=== PATIENT | female | born 1975 | race African-American/Black ===

== ENCOUNTER 2020-12-18 10:27 | Outpatient (REF) | payer MEDICAID, SELFPAY ==
--- NOTE | ~2020-12-18 | MM_ITS ---
EXAMINATION: MM SCREENING DIGITAL BREAST TOMOSYNTHESIS, BILATERAL CLINICAL INFORMATION: Screening. Asymptomatic. The lifetime risk of breast cancer based on the Tyrer-Cuzick Model is 8.2%. COMPARISON: Mammography: Ultrasound of October 12, 2019 and mammography dating back to April 13, 2013 TECHNIQUE: Digital breast tomosynthesis is performed in both the craniocaudal and mediolateral oblique views along with computer-aided detection (CAD). Synthesized 2D images are generated from the tomosynthesis. FINDINGS: The breasts are extremely dense, which lowers the sensitivity of mammography (ACR BI-RADS breast composition Category d). There are no new significant masses, abnormal calcifications, or other abnormalities. Bilateral stable circumscribed densities consistent with cysts again noted. MM/MM tomosynthesis screening BI IMPRESSION: There are no significant changes from prior study. ASSESSMENT: BI-RADS 2: Benign RECOMMENDATION: Routine annual mammography screening. This patient's information was entered into a reminder system with a target due date for their next mammogram.
== END 2020-12-18 10:28 | disposition home or self-care (01) ==
LOC: HO.MAMMO 10:27
PROVIDERS: PCP Internal Medicine; Visit Provider Obstetrics & Gynecology
DX: Z12.31 Encounter for screening mammogram for malignant neoplasm of breast (principal)
CPT/HCPCS: 77063; 77067

== ENCOUNTER → 2021-05-11 11:10 | Outpatient (BNVA) | payer MEDICAID, SELFPAY | PROVIDERS: PCP Internal Medicine; Visit Provider Obstetrics & Gynecology | DX: N64.4 Mastodynia (principal); N63.0 Unspecified lump in unspecified breast | CPT/HCPCS: 99212 ==

== ENCOUNTER 2021-05-18 09:21 | Outpatient (REF) | payer MEDICAID, SELFPAY ==
--- NOTE | ~2021-05-18 | MM_ITS ---
EXAMINATION: MM DIAGNOSTIC DIGITAL BREAST TOMOSYNTHESIS, RIGHT US DIAGNOSTIC ULTRASOUND BREAST, RIGHT CLINICAL INFORMATION: 45-year-old with palpable mass anterior 12:00 right breast. Tenderness right breast. No discharge. The lifetime risk of breast cancer based on the Tyrer-Cuzick Model is 10%. COMPARISON: Mammography: 12/18/2020, 10/04/2019, 02/23/2018; targeted right breast ultrasound 10/12/2019. TECHNIQUE: Digital breast tomosynthesis is performed in both the craniocaudal and mediolateral oblique views along with computer-aided detection (CAD). Synthesized 2D images are generated from the tomosynthesis. Ultrasound right breast is targeted to the area of clinical concern anterior superior breast. Patient is able to point to area of concern at time of imaging. Grayscale imaging and color Doppler are performed without and with harmonics. FINDINGS: The breasts are extremely dense, which lowers the sensitivity of mammography (ACR BI-RADS breast composition Category d). There is fibrocystic parenchymal pattern with multiple parenchymal contour anterior 12:00 right breast similar to prior studies. There is no interval mass or architectural abnormality. No abnormal calcifications. The skin contours are smooth. No skin thickening or coarsening of the Larry's ligaments. Ultrasound right breast demonstrates dominant simple cyst at site of palpable concern 12:00 position anterior breast with overall measurements 2.5 x 1.3 x 2.2 cm. This is slightly increased in size from prior ultrasound 10/12/2019, measurements 2.0 x 1.2 x 1.8 cm. There are some other scattered smaller cysts under 1 cm in the targeted area. No solid mass. No skin thickening or edema tracking in soft tissue planes. No focal duct ectasia. No hyperemia. Results are discussed with the patient at time of visit. MM/MM tomosynthesis diagnostic RT IMPRESSION: Fibrocystic parenchymal pattern. Dominant simple cyst at site of palpable concern measuring 2.5 cm. ASSESSMENT: BI-RADS 2: Benign RECOMMENDATION: Routine annual mammography screening. This patient's information was entered into a reminder system with a target due date for their next mammogram.
== END 2021-05-18 09:22 | disposition home or self-care (01) ==
LOC: HO.MAMMO 09:21
PROVIDERS: PCP Internal Medicine; Visit Provider Advanced Practice Midwife
DX: N64.4 Mastodynia (principal)
CPT/HCPCS: 76642; 77061; 77065

== ENCOUNTER → 2021-05-27 15:45 | Outpatient (BNVA) | payer MEDICAID, SELFPAY | PROVIDERS: PCP Internal Medicine; Visit Provider Advanced Practice Midwife ==

== ENCOUNTER 2023-02-09 08:27 | Outpatient (REF) | payer OTHER, SELFPAY ==
--- NOTE | ~2023-02-09 | MM_ITS ---
EXAMINATION: MM SCREENING DIGITAL BREAST TOMOSYNTHESIS, BILATERAL CLINICAL INFORMATION: Screening. Asymptomatic. The lifetime risk of breast cancer based on the Tyrer-Cuzick Model is 8%. COMPARISON: Mammography: 05/18/2021, 12/18/2020, 10/04/2019; ultrasound right breast 05/18/2021, 10/12/2019. TECHNIQUE: Digital breast tomosynthesis is performed in both the craniocaudal and mediolateral oblique views along with computer-aided detection (CAD). Synthesized 2D images are generated from the tomosynthesis. FINDINGS: The breasts are heterogeneously dense, which may obscure small masses (ACR BI-RADS breast composition Category c). Breast tissue composition borders on extremely dense. Parenchymal pattern is similar to prior studies. Tomography shows scattered smooth waxing and waning fibrocystic changes similar to prior exam. There is a biopsy clip marker anterior upper outer left breast. Neither breast shows developing density or significant mass or architectural abnormality. There are no abnormal calcifications. MM/MM tomosynthesis screening BI IMPRESSION: No significant changes from prior study. ASSESSMENT: BI-RADS 2: Benign RECOMMENDATION: Routine annual mammography screening. This patient's information was entered into a reminder system with a target due date for their next mammogram.
== END 2023-02-09 08:28 | disposition home or self-care (01) ==
LOC: HO.MAMMO 08:27
PROVIDERS: PCP Internal Medicine; Visit Provider Internal Medicine
DX: Z12.31 Encounter for screening mammogram for malignant neoplasm of breast (principal)
CPT/HCPCS: 77063; 77067

== ENCOUNTER 2023-09-21 08:43 | Outpatient (AMB) | payer OTHER, SELFPAY ==
--- NOTE | 2023-09-21 08:53 | A.OFFPC_ITS ---
Vital Signs 09/21/23 08:54 Height 5 ft 6 in Weight 74.389 kg BMI 26.5 BP 140/86 H Blood Pressure Location Lt brachial Position Sitting Pulse 85 Pulse Source Pulse Oximeter Pulse Oximetry (%) 97 Oxygen Delivery Method Room Air Intake Visit Reasons: Re establish Care/ Req physical Sushi Chef Required: No Accompanied by: Self / Same As Patient Allergies No Known Allergies Allergy (Verified 09/21/23 09:04) Medication List - Last Reconciled 09/21/23 by Yonathan Sheridan MD blood pressure monitor (Blood Pressure Kit) As directed Tobacco use date assessed: 09/21/23 Dental Screening Dental Screen Date: 09/21/23 Did you have a dental visit in the last 12 months?: Yes Did you have a dental problem in the last 6 months where you did not have access to dental care?: No Was dental information given to patient?: Patient has dentist HPI Re establish Care/ Req physical HPI Details 47-year-old female with a history of ane josefina and hypercholesterolemia last seen in 2017 coming in for follow-up. states lying flat sob- sicne covid December 2021. 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 1. Little interest or pleasure in doing things: not at all 2. Feeling down, depressed, or hopeless: not at all 3. Trouble falling or staying asleep, or sleeping too much: not at all 4. Feeling tired or having little energy: not at all 5. Poor appetite or overeating: not at all 6. Feeling bad about yourself - or that you are a failure or have let yourself or your family down: not at all 7. Trouble concentrating on things, such as reading the newspaper or watching television: not at all 8. Moving or speaking so slowly that other people could have noticed. Or the opposite - being so fidgety or restless that you have been moving around a lot more than usual: not at all 9. Thoughts that you would be better off or of hurting yourself in some way: not at all Total score: 0 Depression Screening Interpretation: Positive Depression Screening Done: Yes 08163 - PHQ-9 Billing: Yes Source: Developed by Drs. Antony Leonard, Tiny Grimaldo, Bj Vallecillo and colleagues, with an educational shonna from [employer]. Thrive Questionnaire Date Thrive assessed: 09/21/23 I am a: Patient What is your living situation today?: I have a steady place to live Within the past 12 months, did the food you bought not last and you didn't have the money to get more?: Never true Within the past 12 months, did you worry whether your food would run out before you got money to buy more?: Never true Do you have trouble paying for medicines?: No Do you have trouble getting transportation to medical appointments?: No Do you have trouble paying your heating and electricity bill?: No Do you have trouble taking care of your child, family member or friend?: No Do you have trouble with day-to-day activities such as bathing, preparing meals, shopping, managing finances, etc.?: No Are you currently unemployed and looking for a job?: No Are you interested in more education?: No Please select the resources that you would like help with: None Currently or been in a relationship where the following occur: no concerns reported AUDIT C Alcohol Use Questionnaire (AUDIT-C) 1. How often do you have a drink containing alcohol?: Never 3. How often do you have six or more drinks on one occasion?: Never Total Score: 0 JACEK-7 AMB Questionnaire JACEK-7 Date JACEK - 7 assessed: 09/21/23 Feeling nervous, anxious, or on edge: 0 = Not at all Not being able to stop or control worryin = Not at all Worrying too much about different things: 0 = Not at all Trouble relaxin = Not at all Being so restless that it is hard to sit still: 0 = Not at all Becoming easily annoyed or irritable: 0 = Not at all Feeling afraid as if something awful might happen: 0 = Not at all Total JACEK-7 score (0-4 normal; 5-9 mild; 10-14 moderate; 15-21 severe): 0 Source: Developed by Drs. Antony Leonard, Tiny Grimaldo, Bj Vallecillo and colleagues, with an educational shonna from [employer]. JACEK-7 Assessment Billing JACEK-7 Assessment Tool: JACEK-7 Assessment 21841 Review of Systems Const Denies poor appetite and Denies weakness Eyes Denies no additional complaints ENT Reports Normal hearing present, Denies dizziness, Denies nasal congestion, Denies tinnitus and Denies sore throat Card Denies chest pain, Denies syncope, Denies rapid heart rate and Denies dyspnea Resp Denies cough and Denies dyspnea GI Denies change in stool character, Reports constipation, Denies diarrhea, Denies nausea and Denies vomiting Denies urinary frequency, Denies difficulty voiding and Denies dysuria Neuro Reports Normal hearing present, Denies confusion, Denies dizziness, Denies syncope and Denies weakness Psych Denies confusion Physical exam (Primary Care) Vital Signs: Last Vital Signs Pulse 85 09/21/23 08:54 BP 140/86 H 09/21/23 08:54 Pulse Ox 97 09/21/23 08:54 Oxygen Delivery Method Room Air 09/21/23 08:54 BMI result Body Mass Index 26.5 Tobacco/Smoking Status: Tobacco use Status Tobacco use date assessed 09/21/23 09/21/23 08:54 Patient Tobacco Use Status Never used Tobacco 09/21/23 08:54 e-Cigarette/Vaping Use Never Used 09/21/23 09:09 PHQ-9: PHQ-9 Score PHQ-9: Total score 0 09/21/23 09:31 Depression Screening Interpretation: Positive Thrive Assessment: Date of Thrive Assessment Date Thrive assessed 09/21/23 09/21/23 09:09 Currently or been in a relationship where the following occur: no concerns reported Const General: No confusion Orientation/consciousness: No confusion HENMT Head: Yes normocephalic Ears: external ears normal and TM's normal bilaterally Face and sinus: Yes normal facial exam Mouth: moist mucous membranes Throat: Yes tonsils normal Eyes Conjunctivae: conjunctivae normal Pupils: Equal, round and reactive pupils present and Pupil accommodation reflex normal Direct Ophthalmoscopy: normal light reflex Neck Neck: No lymphadenopathy Thyroid: Thyroid normal Chest Chest palpation & inspection: normal inspection of the chest Resp Effort & Inspection: normal respiratory effort and no audible wheezes Auscultation: clear to auscultation bilaterally, no crackles, no wheezes and lung sounds not diminished Cardio Rate: regular rate Rhythm: regular rhythm Peripheral pulses: radial pulses present and dorsalis pedis present GI Palpation (GI): no masses Auscultation: normal bowel sounds and normoactive bowel sounds Rectal Exam - Female: deferred Skin General skin exam: no rashes or lesions noted Rashes: no rashes Neuro General: No confusion Cranial nerves: Yes Equal, round and reactive pupils present and Yes Normal hearing present Cognition (Neuro): normal cognition Gait exam (Neuro): Normal gait present Motor exam (neuro): 5/5 motor strength present throughout Deep tendon reflexes (DTR's): Right brachioradialis reflex intensity grade: 2+, Left brachioradialis reflex intensity grade: 2+, Right patellar reflex intensity grade: 2+ and Left patellar reflex intensity grade: 2+ Extrem General: No edema Immunizations tetanus-diphtheria toxoids-Td 2 Lf unit-2 Lf unit/0.5 mL IM suspension Performing Provider: Yonathan Sheridan MD Performing Location: [facility] Administered by: Melvina Pienda CMA on 09/21/23 09:58 Dose Route Admin Location Dispensed Lot Number Expiration Date NDC Hosiery Knitter 0.5 mL IM Left Deltoid 0.5 mL [id number] 02/13/24 [address]-0 [employer] VIS Given Date VIS Provided VIS Publication Date 09/21/23 Single Vaccine 21 Eligibility Eligibility Date Funding Source Not [facility] Eligible 09/21/23 State funds Assessment and Plan Assessment & Plan (1) Annual physical exam: Code(s): Z00.00 - Encounter for general adult medical examination without abnormal findings (2) Cervical cancer screening: Code(s): Z12.4 - Encounter for screening for malignant neoplasm of cervix Plan: Reminded patient (3) Colon cancer screening: Code(s): Z12.11 - Encounter for screening for malignant neoplasm of colon Plan: Reminded patient (4) Hypercholesterolemia: Code(s): E78.00 - Pure hypercholesterolemia, unspecified Plan: Avoid fried foods, chicken skin, eggs, butter margarine, pastries and meat. Be it pork or beef they have a lot of cholesterol LDL goal of less than 130 and triglyceride of less than 150 (5) Vitamin B12 deficiency: Code(s): E53.8 - Deficiency of other specified B group vitamins Plan: Vitamin B12 1000 mcg once a day (6) Blood pressure elevated without history of HTN: Code(s): R03.0 - Elevated blood-pressure reading, without diagnosis of hypertension Plan: Advised to monitor blood pressure at home sit down for about 3-5 minutes and then get the blood pressure and record (7) COVID-19 virus infection: Comment: december 2021 Code(s): U07.1 - COVID-19 Plan: Concern about the problem of shortness of breath on lying down will do a chest x-ray (8) Orthopnea: Code(s): R06.01 - Orthopnea Plan: X-ray requested the chest (9) GERD (gastroesophageal reflux disease): Code(s): K21.9 - Gastro-esophageal reflux disease without esophagitis Plan: Avoid the foods that causes that usually spicy foods, tomato products, juices, coffee, soda and foods that your sensitive to. After eating do not lie down, allow 3-4 hours before in lie down. And keep the head of bed above 30 degrees to avoid the acid from going up. (10) Atopic dermatitis: Code(s): L20.9 - Atopic dermatitis, unspecified Plan: Discussed about thicker lotions likes cerave , Vanicream. Steroid creams described for the pruritic areas Orders: Orders XR chest 2V Today R06.01 - Orthopnea Complete Blood Count Auto Diff Today E78.00 - Pure hypercholesterolemia, unspecified Comprehensive Met. Panel Today E78.00 - Pure hypercholesterolemia, unspecified Lipid Panel Today E78.00 - Pure hypercholesterolemia, unspecified Vitamin B12 and Folate Today E78.00 - Pure hypercholesterolemia, unspecified Td State Immunization Today Z23 - Encounter for immunization Free T4 (Free Thyroxine) Today E78.00 - Pure hypercholesterolemia, unspecified Thyroid Stimulating Hormone Today E78.00 - Pure hypercholesterolemia, unspecified Vitamin D 25-OH Total Today E78.00 - Pure hypercholesterolemia, unspecified Referrals Gastroenterology Referral K21.9 - Gastro-esophageal reflux disease without esophagitis, Z12.11 - Encounter for screening for malignant neoplasm of colon Medications: New blood pressure monitor (Blood Pressure Kit) As directed 1 ea 0RF I10 - Essential (primary) hypertension, R03.0 - Elevated blood-pressure reading, without diagnosis of hypertension hydrocortisone 2.5% 1 appl topical BID PRN 30 grams 0RF skin irritation L20.9 - Atopic dermatitis, unspecified hydrocortisone 2.5% 1 appl topical BID PRN 30 grams 0RF skin irritation L20.9 - Atopic dermatitis, unspecified ascorbate calcium (vitamin C) 1 g (2 x 500 mg) PO DAILY 90 tabs 0RF L20.9 - Atopic dermatitis, unspecified Coding Level of Care Code New Pt Prev Care 40-64y(03784) Diagnoses Annual physical exam Z00.00 Cervical cancer screening Z12.4 Colon cancer screening Z12.11 Hypercholesterolemia E78.00 Vitamin B12 deficiency E53.8 Blood pressure elevated without history of HTN R03.0 COVID-19 virus infection U07.1 Orthopnea R06.01 GERD (gastroesophageal reflux disease) K21.9 Atopic dermatitis L20.9 Additional Codes JACEK-7 Assessment Billing - JACEK-7 Assessment Tool: JACEK-7 Assessment 59534 ([id number])
[2023-09-21 08:54] VITALS: BP 140/86; PULSE 85; O2SAT 97; BMI 26.5
== END 2023-09-21 10:08 | disposition home or self-care (01) ==
PROVIDERS: PCP Internal Medicine; Visit Provider Internal Medicine
DX: Z23 Encounter for immunization (principal)
CPT/HCPCS: 90471; 90714; 99386

== ENCOUNTER 2023-11-09 08:23 | Outpatient (AMB) | payer OTHER, SELFPAY ==
[2023-11-09 08:28] VITALS: BP 126/74; PULSE 94; BMI 25.5
--- NOTE | 2023-11-09 08:28 | MHC.OFFVIS ---
Intake Vital Signs 11/09/23 08:28 11/09/23 08:34 Height 5 ft 6 in 5 ft 6 in Weight 158 lb 158 lb BMI 25.5 25.5 BP 126/74 126/74 Blood Pressure Location Lt brachial Lt brachial Position Sitting Sitting Pulse 94 74 Intake Visit Reasons: colo screening/GERD Intake Note: new consult for 1st pre colonoscopy screening. Patient cc: acid reflex on and off. Denies any other GI issues. 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 female here today for pre colonoscopy screening.? Patient was sent to us by her PCP.? This is her first colonoscopy screening.? Patient denies any gastrointestinal symptoms in the past or at present.? However patient does report to have occasional acid reflux depending on what she eats. Patient is trying to avoid food that is spicy. Symptoms of acid reflux about twice a week. Denies any personal or family history of gastrointestinal disease, colon polyps, or cancer.? Denies history of difficulty with sedation or anesthesia in the past.? Negative for history of sleep apnea.? Denies any history of cardiac, renal, pulmonary, or hepatic disease.?? No history of infectious? diseases like hepatitis A, B, C, HIV or tuberculosis.? Patient is not on any anticoagulation therapy. 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 Current occupational exposures/hazards: No Cognitive needs: No Hearing needs: No Vision needs: No Review of Systems Const Denies weight gain and Denies weight loss ENT Reports no additional complaints, Denies dysphagia and Denies odynophagia Card Reports no additional complaints Resp Reports no additional complaints GI Denies abdominal pain, Denies belching, Denies melena, Denies bloating, Denies change in bowel habits, Denies dysphagia, Denies excessive flatus, Denies dyspepsia, Reports heartburn (Occasional), Denies diarrhea, Denies loose stools, Denies nausea, Denies odynophagia and Denies vomiting Reports no additional complaints Musc Reports no additional complaints Neuro Reports no additional complaints Psych Reports no additional complaints Endo Reports no additional complaints Physical Exam Vital Signs: Last Vital Signs Pulse 74 11/09/23 08:34 BP 126/74 11/09/23 08:34 BMI result Body Mass Index 25.5 Const General: healthy appearing, no acute distress and well developed Nutritional Appearance: well nourished Orientation/consciousness: patient oriented x3 Resp Effort & Inspection: normal respiratory effort, able to speak in complete sentences, no tracheal deviation and symmetric chest movement Auscultation: clear to auscultation bilaterally Cardio Rate: regular rate GI Inspection: Yes normal to inspection and No distended Palpation (GI): Soft to palpation, not firm, nontender and No hepatosplenomegaly present Auscultation: normal bowel sounds General: Yes no CVA tenderness Back/Spine/Pelvis Back: no CVA tenderness Skin General skin exam: elasticity normal, turgor normal and dry skin Neuro General: patient oriented x3 Psych Appearance: grossly normal Mental Status: mental status grossly normal Assessment & Plan Assessment & Plan (1) GERD (gastroesophageal reflux disease): Code(s): K21.9 - Gastro-esophageal reflux disease without esophagitis Qualifiers: Esophagitis presence: esophagitis presence not specified Qualified Code(s): K21.9 - Gastro-esophageal reflux disease without esophagitis (2) Colon cancer screening: Code(s): Z12.11 - Encounter for screening for malignant neoplasm of colon Plan Patient denies any cardiac or respiratory symptoms.? Occasional acid reflux, patient is not on any PPI. Trying to avoid dietary triggers. Denies any issues with anesthesia in the past.? Denies any history of sleep apnea.? No history infectious diseases in the past or present.? Not on any anticoagulation therapy.? No family or personal history of colon cancer or polyps.? Patient denies melena, hematochezia, unintentional weight loss or ribbon like stools.? Discussed at length the pre-procedure,? prep, diet & medications as well as what to expect prior, during and after the procedure.?? Stressed the importance of good bowel prep. ?Recommended the use of Vaseline or Calmoseptine OTC & baby wipes with bowel movements to promote comfort.? ?Patient verbalizes understanding and agrees to plan of care.? She was given the opportunity to ask questions and all questions answered.? We will see her after the procedure.? Medications: New polyethylene glycol 3350 (Miralax) As directed by gastroenterology department at [facility] 238 grams PO ONCE 238 grams 0RF Z12.11 - Encounter for screening for malignant neoplasm of colon bisacodyl (Dulcolax (bisacodyl)) take 4 tabs at noon the day before your colonoscopy 20 mg (4 x 5 mg) PO ONCE 1 day 4 tabs 0RF Z12.11 - Encounter for screening for malignant neoplasm of colon Coding Level of Care Code New Pt Level 3 (31648) Diagnoses Gastroesophageal reflux disease, unspecified whether esophagitis present K21.9 Esophagitis presence: esophagitis presence not specified Colon cancer screening Z12.11 Time Spent (min) 40 Comment 30 minutes spent with patient and additional 10 minutes spent reviewing her records
--- NOTE | 2023-11-09 08:30 | A.OFFVIS_ITS ---
Intake Vital Signs 11/09/23 08:28 11/09/23 08:34 Height 5 ft 6 in 5 ft 6 in Weight 158 lb BMI 25.5 BP 126/74 126/74 Blood Pressure Location Lt brachial Lt brachial Position Sitting Sitting Pulse 94 74 Intake Visit Reasons: colo screening/GERD Intake Note: Patient new consult for 1st pre colonoscopy screening. Patient cc: acid reflex on and off. Denies any other GI issues. 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
[2023-11-09 08:34] VITALS: BP 126/74; PULSE 74; BMI 25.5
== END 2023-11-09 09:08 | disposition home or self-care (01) ==
PROVIDERS: PCP Internal Medicine; Visit Provider Nurse Practitioner Family
DX: K21.9 Gastro-esophageal reflux disease without esophagitis (principal); Z12.11 Encounter for screening for malignant neoplasm of colon
CPT/HCPCS: 99203

== ENCOUNTER → 2023-11-09 08:23 | Outpatient (BNVA) | payer OTHER, SELFPAY | PROVIDERS: PCP Internal Medicine; Visit Provider Nurse Practitioner Family | DX: Z01.818 Encounter for other preprocedural examination (principal); K21.9 Gastro-esophageal reflux disease without esophagitis | CPT/HCPCS: 99202 ==

== ENCOUNTER 2023-12-21 10:01 | Outpatient (AMB) | payer OTHER, SELFPAY ==
[2023-12-21 10:14] VITALS: BP 124/76; PULSE 83; O2SAT 93; BMI 25.7
--- NOTE | 2023-12-21 10:14 | MHC.PC.OV ---
Vital Signs 12/21/23 10:14 Height 5 ft 6 in Weight 159 lb BMI 25.7 BP 124/76 Blood Pressure Location Lt brachial Position Sitting Pulse 83 Pulse Source Pulse Oximeter Pulse Oximetry (%) 93 Oxygen Delivery Method Room Air Intake Visit Reasons: Gastroesophageal reflux disease (GERD) Allergies No Known Allergies Allergy (Verified 12/21/23 10:14) Medication List - Last Reconciled 12/21/23 by Yonathan Sheridan MD ascorbate calcium (vitamin C) 1 g (2 x 500 mg) PO DAILY bisacodyl (Dulcolax (bisacodyl)) 20 mg (4 x 5 mg) PO ONCE 1 day blood pressure monitor (Blood Pressure Kit) As directed hydrocortisone 2.5% 1 appl topical BID PRN polyethylene glycol 3350 (Miralax) 238 grams PO ONCE Tobacco use date assessed: 12/21/23 Dental Screening Dental Screen Date: 12/21/23 Did you have a dental visit in the last 12 months?: Yes Did you have a dental problem in the last 6 months where you did not have access to dental care?: No Was dental information given to patient?: Patient has dentist HPI Gastroesophageal reflux disease (GERD) HPI Details 47-year-old female with a history of hypercholesterolemia GERD last seen in September for physical exam. Noted to have an elevated blood pressure advised to monitor. Patient did see the medical genetics director for colon screening. Colon test 02/08/2024. Scheduled for mammogram also 02/15/2024. Patient knows to get the blood work and reminded her. As for the blood pressure she has been checking it at home it is doing good. No problems with bowel and bladder . [facility] Medical History (Updated 11/09/23 @ 08:45 by Bettie Silvestre [facility]) Anemia Vitamin D deficiency Hypercholesterolemia Surgical History History of lumpectomy of left breast H/O abdominal supracervical subtotal hysterectomy Family History (Updated 12/21/23 @ 10:15 by Melvina Pineda [facility]) Father Multiple myeloma Social History Housing: House Alcohol intake: never Patient Tobacco Use Status: Never used Tobacco e-Cigarette/Vaping Use: Never Used service: No Current occupational status: employed Current occupation: [employer] Current occupational exposures/hazards: No Cognitive needs: No Hearing needs: No Vision needs: No Questionnaire PHQ-9 Over the last 2 weeks, how often have you been bothered by any of the following problems? 1. Little interest or pleasure in doing things: not at all 2. Feeling down, depressed, or hopeless: not at all 3. Trouble falling or staying asleep, or sleeping too much: not at all 4. Feeling tired or having little energy: not at all 5. Poor appetite or overeating: not at all 6. Feeling bad about yourself - or that you are a failure or have let yourself or your family down: not at all 7. Trouble concentrating on things, such as reading the newspaper or watching television: not at all 8. Moving or speaking so slowly that other people could have noticed. Or the opposite - being so fidgety or restless that you have been moving around a lot more than usual: not at all 9. Thoughts that you would be better off or of hurting yourself in some way: not at all Total score: 0 Depression Screening Interpretation: Positive Depression Screening Done: Yes 73280 - PHQ-9 Billing: Yes Source: Developed by Drs. Antony Leonard, Tiny Grimaldo, Bj Vallecillo and colleagues, with an educational shonna from [employer]. Thrive Questionnaire Date Thrive assessed: 12/21/23 I am a: Patient What is your living situation today?: I have a steady place to live Within the past 12 months, did the food you bought not last and you didn't have the money to get more?: Never true Within the past 12 months, did you worry whether your food would run out before you got money to buy more?: Never true Do you have trouble paying for medicines?: No Do you have trouble getting transportation to medical appointments?: No Do you have trouble paying your heating and electricity bill?: No Do you have trouble taking care of your child, family member or friend?: No Do you have trouble with day-to-day activities such as bathing, preparing meals, shopping, managing finances, etc.?: No Are you currently unemployed and looking for a job?: No Are you interested in more education?: No Currently or been in a relationship where the following occur: no concerns reported THRIVE Score: 0 AUDIT C Alcohol Use Questionnaire (AUDIT-C) 1. How often do you have a drink containing alcohol?: Monthly or less 2. How many drinks containing alcohol do you have on a typical day when you are drinking?: 1 or 2 3. How often do you have six or more drinks on one occasion?: Never Total Score: 1 JACEK-7 AMB Questionnaire JACEK-7 Date JACEK - 7 assessed: 12/21/23 Feeling nervous, anxious, or on edge: 0 = Not at all Not being able to stop or control worryin = Not at all Worrying too much about different things: 0 = Not at all Trouble relaxin = Not at all Being so restless that it is hard to sit still: 0 = Not at all Becoming easily annoyed or irritable: 0 = Not at all Feeling afraid as if something awful might happen: 0 = Not at all Total JACEK-7 score (0-4 normal; 5-9 mild; 10-14 moderate; 15-21 severe): 0 Source: Developed by Drs. Antony Leonard, Tiny Grimaldo, Bj Vallecillo and colleagues, with an educational shonna from [employer]. JACEK-7 Assessment Billing JACEK-7 Assessment Tool: JACEK-7 Assessment 99970 Physical exam (Primary Care) Vital Signs: Last Vital Signs Pulse 83 12/21/23 10:14 BP 124/76 12/21/23 10:14 Pulse Ox 93 12/21/23 10:14 Oxygen Delivery Method Room Air 12/21/23 10:14 BMI result Body Mass Index 25.7 Tobacco/Smoking Status: Tobacco use Status Tobacco use date assessed 12/21/23 12/21/23 10:16 Patient Tobacco Use Status Never used Tobacco 12/21/23 10:16 e-Cigarette/Vaping Use Never Used 12/21/23 10:16 PHQ-9: PHQ-9 Score PHQ-9: Total score 0 12/21/23 10:23 Depression Screening Interpretation: Positive Thrive Assessment: Date of Thrive Assessment Date Thrive assessed 12/21/23 12/21/23 10:16 Currently or been in a relationship where the following occur: no concerns reported Const General: alert; No acute distress Eyes Conjunctivae: conjunctivae normal Resp Auscultation: clear to auscultation bilaterally Cardio Rate: regular rate Rhythm: regular rhythm GI Inspection: Yes normal to inspection Extrem General: Yes normal to inspection and No edema Assessment and Plan Assessment & Plan (1) Blood pressure elevated without history of HTN: Code(s): R03.0 - Elevated blood-pressure reading, without diagnosis of hypertension Plan: Blood pressure is normal presently advised continue monitoring it. Blood pressure is good (2) Colon cancer screening: Code(s): Z12.11 - Encounter for screening for malignant neoplasm of colon Plan: Patient has met with Gastroenterology in February 2024 scheduled for colon test (3) Hypercholesterolemia: Code(s): E78.00 - Pure hypercholesterolemia, unspecified Plan: Avoid fried foods, chicken skin, eggs, butter margarine, pastries and meat. Be it pork or beef they have a lot of cholesterol LDL goal of less than 130 and triglyceride of less than 150. Patient is reminded about the blood work (4) GERD (gastroesophageal reflux disease): Code(s): K21.9 - Gastro-esophageal reflux disease without esophagitis Qualifiers: Esophagitis presence: esophagitis presence not specified Qualified Code(s): K21.9 - Gastro-esophageal reflux disease without esophagitis Plan: Avoid the foods that causes that usually spicy foods, tomato products, juices, coffee, soda and foods that your sensitive to. After eating do not lie down, allow 3-4 hours before in lie down. And keep the head of bed above 30 degrees to avoid the acid from going up. Coding Level of Care Code Est Pt Level 4 (48137) Diagnoses Blood pressure elevated without history of HTN R03.0 Colon cancer screening Z12.11 Hypercholesterolemia E78.00 Gastroesophageal reflux disease, unspecified whether esophagitis present K21.9 Esophagitis presence: esophagitis presence not specified Additional Codes JACEK-7 Assessment Billing - JACEK-7 Assessment Tool: JACEK-7 Assessment 69905 ([id number])
== END 2023-12-21 12:38 | disposition home or self-care (01) ==
PROVIDERS: PCP Internal Medicine; Visit Provider Internal Medicine
DX: R03.0 Elevated blood-pressure reading, without diagnosis of hypertension (principal); Z12.11 Encounter for screening for malignant neoplasm of colon; E78.00 Pure hypercholesterolemia, unspecified; K21.9 Gastro-esophageal reflux disease without esophagitis
CPT/HCPCS: 99214

== ENCOUNTER 2024-02-28 08:21 | Outpatient (REF) | payer OTHER, SELFPAY ==
--- NOTE | ~2024-02-28 | MM_ITS ---
EXAMINATION: MM SCREENING DIGITAL BREAST TOMOSYNTHESIS, BILATERAL CLINICAL INFORMATION: Screening. Asymptomatic. History of left excisional biopsy 2001, fibroadenoma, benign. COMPARISON: Mammography: Most recently 02/09/2023, and dating back to 05/14/2014. TECHNIQUE: Digital breast tomosynthesis is performed in both the craniocaudal and mediolateral oblique views along with computer-aided detection (CAD). Synthesized 2D images are generated from the tomosynthesis. FINDINGS: The breasts are heterogeneously dense, which may obscure small masses (ACR BI-RADS breast composition Category c). Post benign biopsy marker in the anterior upper mildly outer left breast. Mildly prominent lymph node in the axillary tail of the left breast, stable. Mild scarring in the upper left breast is again noted. Oval mass in the 12:00 retroareolar right breast is a known simple cyst. Several circumscribed oval masses are present in both breasts, most consistent with numerous benign cysts, waxing and waning over time. No suspicious masses, suspicious grouped microcalcifications, or areas of new architectural distortion are evident. The overall parenchymal pattern is similar to prior studies. MM/MM tomosynthesis screening BI IMPRESSION: -No mammographic evidence of malignancy. Stable examination. -Heterogeneously dense fibrocystic breast parenchyma is present bilaterally, with waxing and waning cysts in both breasts. Findings are benign. -Stable post excisional biopsy scarring in the anterior left breast with stable post benign biopsy marker. ASSESSMENT: BI-RADS BI-RADS 2 - Benign Findings RECOMMENDATION: Routine annual mammography screening. 1 year F/U This examination should not preclude the clinical evaluation of a suspicious palpable abnormality. This patient's information was entered into a reminder system with a target due date for their next mammogram.
== END 2024-02-28 08:22 | disposition home or self-care (01) ==
LOC: HO.MAMMO 08:21
PROVIDERS: PCP Internal Medicine; Visit Provider Internal Medicine
DX: Z12.31 Encounter for screening mammogram for malignant neoplasm of breast (principal)
CPT/HCPCS: 77063; 77067

== ENCOUNTER → 2024-02-28 08:45 | Outpatient (BNV) | payer OTHER, SELFPAY | PROVIDERS: PCP Internal Medicine; Visit Provider Radiology Diagnostic Radiology | DX: Z12.31 Encounter for screening mammogram for malignant neoplasm of breast (principal) | CPT/HCPCS: 77063; 77067 ==

== ENCOUNTER → 2024-12-21 14:05 | Outpatient (BNVA) | payer OTHER, SELFPAY | PROVIDERS: PCP Internal Medicine; Visit Provider Internal Medicine | DX: Z00.00 Encounter for general adult medical examination without abnormal findings (principal); E78.00 Pure hypercholesterolemia, unspecified; K21.9 Gastro-esophageal reflux disease without esophagitis | CPT/HCPCS: 96127; 99396 ==

== ENCOUNTER 2024-12-21 14:12 | Outpatient (AMB) | payer OTHER, SELFPAY ==
[2024-12-21 14:33] VITALS: BP 120/78; PULSE 90; O2SAT 98; BMI 24.9
--- NOTE | 2024-12-21 14:33 | A.OFFPC_ITS ---
Vital Signs 12/21/24 14:33 Height 5 ft 6 in Weight 154 lb BMI 24.9 BP 120/78 Blood Pressure Location Lt brachial Position Sitting Pulse 90 Pulse Source Pulse Oximeter Pulse Oximetry (%) 98 Oxygen Delivery Method Room Air Intake Visit Reasons: PE/PHQ - 9 Show Operations Supervisor Required: No Accompanied by: Self / Same As Patient Allergies No Known Allergies Allergy (Verified 12/21/24 14:34) Medication List - Last Reconciled 12/21/24 by Yonathan Sheridan MD ascorbate calcium (vitamin C) 1 g (2 x 500 mg) PO DAILY blood pressure monitor (Blood Pressure Kit) As directed hydrocortisone 2.5% 1 appl topical BID PRN Tobacco use date assessed: 12/21/24 Dental Screening Dental Screen Date: 12/21/24 Did you have a dental visit in the last 12 months?: Yes Did you have a dental problem in the last 6 months where you did not have access to dental care?: No Was dental information given to patient?: Patient has dentist [facility] Medical History (Updated 11/09/23 @ 08:45 by Bettie Silvestre [facility]) Anemia Vitamin D deficiency Hypercholesterolemia Surgical History History of lumpectomy of left breast H/O abdominal supracervical subtotal hysterectomy Family History Father Multiple myeloma Social History (Updated 12/21/24 @ 15:06 by Yonathan Sheridan MD) Housing: House Alcohol intake: current Comment: once a week 2 glasses Patient Tobacco Use Status: Never used Tobacco e-Cigarette/Vaping Use: Never Used service: No Current occupational status: employed 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 1. Little interest or pleasure in doing things: not at all 2. Feeling down, depressed, or hopeless: not at all 3. Trouble falling or staying asleep, or sleeping too much: not at all 4. Feeling tired or having little energy: not at all 5. Poor appetite or overeating: not at all 6. Feeling bad about yourself - or that you are a failure or have let yourself or your family down: not at all 7. Trouble concentrating on things, such as reading the newspaper or watching television: not at all 8. Moving or speaking so slowly that other people could have noticed. Or the opposite - being so fidgety or restless that you have been moving around a lot more than usual: not at all 9. Thoughts that you would be better off or of hurting yourself in some way: not at all Total score: 0 Depression Screening Interpretation: Positive Depression Screening Done: Yes 25422 - PHQ-9 Billing: Yes Source: Developed by Drs. Antony Leonard, Tiny Grimaldo, Bj Vallecillo and colleagues, with an educational shonna from [facility]. Thrive Questionnaire Date Thrive assessed: 12/21/24 I am a: Patient What is your living situation today?: I have a steady place to live Within the past 12 months, did the food you bought not last and you didn't have the money to get more?: I choose not to answer this question Within the past 12 months, did you worry whether your food would run out before you got money to buy more?: Never true Do you have trouble paying for medicines?: No Do you have trouble paying your heating and electricity bill?: No Do you have trouble taking care of your child, family member or friend?: No Do you have trouble with day-to-day activities such as bathing, preparing meals, shopping, managing finances, etc.?: No Are you currently unemployed and looking for a job?: No Are you interested in more education?: No Please select the resources that you would like help with: None Currently or been in a relationship where the following occur: No concerns reported THRIVE Score: 0 AUDIT C Alcohol Use Questionnaire (AUDIT-C) 1. How often do you have a drink containing alcohol?: Never 3. How often do you have six or more drinks on one occasion?: Never Total Score: 0 JACEK-7 AMB Questionnaire JACEK-7 Date JACEK - 7 assessed: 12/21/24 Feeling nervous, anxious, or on edge: 0 = Not at all Not being able to stop or control worryin = Not at all Worrying too much about different things: 0 = Not at all Trouble relaxin = Not at all Being so restless that it is hard to sit still: 0 = Not at all Becoming easily annoyed or irritable: 0 = Not at all Feeling afraid as if something awful might happen: 0 = Not at all Total JACEK-7 score (0-4 normal; 5-9 mild; 10-14 moderate; 15-21 severe): 0 Source: Developed by Drs. Antony Leonard, Tiny Grimaldo, Bj Vallecillo and colleagues, with an educational shonna from [facility]. Review of Systems Const Denies poor appetite and Denies weakness Eyes Denies no additional complaints ENT Reports Normal hearing present, Denies dizziness, Denies nasal congestion, Denies tinnitus and Denies sore throat Card Denies chest pain, Denies syncope, Denies rapid heart rate and Denies dyspnea Resp Denies cough and Denies dyspnea GI Denies change in stool character, Reports constipation, Denies diarrhea, Denies nausea and Denies vomiting Denies urinary frequency, Denies difficulty voiding and Denies dysuria Neuro Reports Normal hearing present, Denies confusion, Denies dizziness, Denies syncope and Denies weakness Psych Denies confusion Physical exam (Primary Care) Vital Signs: Last Vital Signs Pulse 90 12/21/24 14:33 BP 120/78 12/21/24 14:33 Pulse Ox 98 12/21/24 14:33 Oxygen Delivery Method Room Air 12/21/24 14:33 BMI result Body Mass Index 24.9 Tobacco/Smoking Status: Tobacco use Status Tobacco use date assessed 12/21/24 12/21/24 14:35 Patient Tobacco Use Status Never used Tobacco 12/21/24 14:35 e-Cigarette/Vaping Use Never Used 12/21/24 14:35 PHQ-9: PHQ-9 Score PHQ-9: Total score 0 12/21/24 14:40 Depression Screening Interpretation: Positive Thrive Assessment: Date of Thrive Assessment Date Thrive assessed 12/21/24 12/21/24 14:40 Currently or been in a relationship where the following occur: No concerns reported Const General: No confusion Orientation/consciousness: No confusion HENMT Head: Yes normocephalic Ears: external ears normal and TM's normal bilaterally Face and sinus: Yes normal facial exam Mouth: moist mucous membranes Throat: Yes tonsils normal Eyes Conjunctivae: conjunctivae normal Pupils: Equal, round and reactive pupils present and Pupil accommodation reflex normal Direct Ophthalmoscopy: normal light reflex Neck Neck: No lymphadenopathy Thyroid: Thyroid normal Chest Chest palpation & inspection: normal inspection of the chest Resp Effort & Inspection: normal respiratory effort and no audible wheezes Auscultation: clear to auscultation bilaterally, no crackles, no wheezes and lung sounds not diminished Cardio Rate: regular rate Rhythm: regular rhythm Peripheral pulses: radial pulses present and dorsalis pedis present GI Palpation (GI): no masses Auscultation: normal bowel sounds and normoactive bowel sounds Rectal Exam - Female: deferred Skin General skin exam: no rashes or lesions noted Rashes: no rashes Neuro General: No confusion Cranial nerves: Yes Equal, round and reactive pupils present and Yes Normal hearing present Cognition (Neuro): normal cognition Gait exam (Neuro): Normal gait present Motor exam (neuro): 5/5 motor strength present throughout Deep tendon reflexes (DTR's): Right brachioradialis reflex intensity grade: 2+, Left brachioradialis reflex intensity grade: 2+, Right patellar reflex intensity grade: 2+ and Left patellar reflex intensity grade: 2+ Extrem General: No edema Coding Level of Care Code Est Pt Prev Care 40-64y(19294) Diagnoses Annual physical exam Z00.00 Hypercholesterolemia E78.00 Colon cancer screening Z12.11 Gastroesophageal reflux disease, unspecified whether esophagitis present K21.9 Esophagitis presence: esophagitis presence not specified Cervical cancer screening Z12.4 Additional Codes PHQ-9 - 18794 - PHQ-9 Billing: Yes ([id number]) Assessment & Plan Assessment & Plan (1) Annual physical exam: Code(s): Z00.00 - Encounter for general adult medical examination without abnormal findings Category: Medical Plan: Patient is advised to eat healthy, keep well hydrated, keep active and have adequate sleep. (2) Hypercholesterolemia: Code(s): E78.00 - Pure hypercholesterolemia, unspecified Category: Medical Plan: Avoid fried foods, chicken skin, eggs, butter margarine, pastries and meat. Be it pork or beef they have a lot of cholesterol patient is reminded about the blood work (3) Colon cancer screening: Code(s): Z12.11 - Encounter for screening for malignant neoplasm of colon Category: Medical Plan: Patient is reminded about colon cancer screening (4) GERD (gastroesophageal reflux disease): Code(s): K21.9 - Gastro-esophageal reflux disease without esophagitis Category: Medical Qualifiers: Esophagitis presence: esophagitis presence not specified Qualified Code(s): K21.9 - Gastro-esophageal reflux disease without esophagitis Plan: Avoid the foods that causes that usually spicy foods, tomato products, juices, coffee, soda and foods that your sensitive to. After eating do not lie down, allow 3-4 hours before in lie down. And keep the head of bed above 30 degrees to avoid the acid from going up. (5) Cervical cancer screening: Code(s): Z12.4 - Encounter for screening for malignant neoplasm of cervix Category: Medical Plan History of Present Illness The patient is a 49-year-old female presenting for a routine physical examination and to address preventive health measures. She has a documented history of hypercholesterolemia, with her last lab work in 2018 indicating high cholesterol levels, which is due for re-evaluation. A noted incident of elevated blood pressure was discussed during her visit in December 2023. She has undergone mammography as of February 2024. The patient also has a history of Gastroesophageal Reflux Disease, which she manages through dietary modification, resulting in a decrease in heartburn episodes. For hypercholesterolemia, the intention is to conduct a follow-up fasting blood test, considering her previous results. The patient was also briefed about the logistics and timing of getting laboratory work done. Weight loss, reported as approximately 5 pounds since previous consultations, was noted, likely linked to increased exercise levels. The need for colon cancer screening was addressed, and the patient preferred the Cologuard test delivered to her residence over a traditional colonoscopy. She has tailored her lifestyle and nutrition to reduce GERD symptoms effectively. Recently, she experienced COVID-19 followed by influenza from occupational exposures, managing well otherwise. These episodes emphasize the relevance of preventive measures, including the use of masks at her workplace to mitigate respiratory illness spread. Health Maintenance - Colon cancer screening discussion with preference for Cologuard test over colonoscopy. - Recommended fasting blood test for cholesterol re-evaluation. - Discussion on weight management and increased activity to aid hypercholesterolemia control. - GERD managed with lifestyle and dietary modifications. - Discussion on Vitamin D supplementation due to limited sunlight exposure. - COVID-19 and flu experiences highlight the need for occupational illness prevention measures. 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 - Drinks two glasses of wine weekly. - Engages in regular physical activity, evidenced by weight loss likely due to increased exercise. - No tobacco use and occasional alcohol consumption (wine). - Does not use recreational drugs. - Vital signs support normal BMI, indicating effective weight management. Review of Systems - Cardiovascular: Denies chest pain or discomfort, dyspnea, or episodes of passing out. - Gastrointestinal: Reports well-managed GERD symptoms with no current dysphagia or constipation. - Neurological: Denies dizziness or vertigo. - Respiratory: Denies shortness of breath or respiratory distress. Physical Exam General: Cooperative, healthy appearing, comfortable, no acute distress and well developed Orientation: Patient oriented x3 Limitations: No limitations Head: Normal to inspection Ears: Hearing grossly normal bilaterally Nose: Normal external nose present Face and sinus: Normal facial exam Eyes: Appearance normal, both eyes and all related structures Neck: Normal visual inspection and Yes full ROM Respiratory: Normal respiratory effort and able to speak in complete sentences. Clear to auscultation bilaterally Cardiovascular: Regular rate and rhythm. Normal S1 and S2, known heart murmur GI: Normal to inspection. Soft to palpation and nontender Skin: No rashes or lesions noted Neuro: Patient oriented x3 Extremities: Normal to inspection, no pain or tenderness noted Results Plan I have planned a fasting lipid panel for updated cholesterol management due to previous high levels. The patient will undertake the Cologuard test for colon cancer screening, preferred over colonoscopy. I will continue observing her blood pressure and manage it conservatively. Emphasis on maintaining healthy nutrition, physical activity, and avoiding excessive alcohol or tobacco remains essential in her care. Patient was informed and verbally consented to the use of an ambient scribe for clinic note documentation during this visit. Discussion Notes We engaged in a comprehensive discussion regarding the patient's health maintenance strategy, including cholesterol assessment, colon cancer screening, and GERD management. I informed her of the utility and non-invasiveness of the Cologuard test which will be sent to her home, highlighting its role in early detection of colorectal malignances. The fasting lipid test is essential to guide future management of her hypercholesterolemia. Additionally, concerns about workplace exposure to respiratory illnesses were addressed, emphasizing preventive masking strategies. Follow-up and abnormal result reporting protocols were explained to her satisfaction. Patient Instructions - Complete fasting blood work for cholesterol evaluation on a convenient Tuesday morning. - Perform the Cologuard test upon receipt for colon cancer screening. - Continue to manage GERD symptoms with dietary and lifestyle modifications. - Maintain current physical activity levels to aid weight management. - Stay hydrated and consume a balanced diet with adequate Vitamin D. - Use protective measures at work to prevent respiratory illness exposure. - Contact office if no results are received within 3-4 days following blood tests. - Notify healthcare provider immediately for any concerning symptoms or changes in health status. Orders: Orders Free T4 (Free Thyroxine) Today E78.00 - Pure hypercholesterolemia, unspecified Thyroid Stimulating Hormone Today E78.00 - Pure hypercholesterolemia, unspecified Vitamin B12 and Folate Today E78.00 - Pure hypercholesterolemia, unspecified Complete Blood Count Auto Diff Today E78.00 - Pure hypercholesterolemia, unspecified Comprehensive Met. Panel Today E78.00 - Pure hypercholesterolemia, unspecified Lipid Panel Today E78.00 - Pure hypercholesterolemia, unspecified Vitamin D 25-OH Total Today E78.00 - Pure hypercholesterolemia, unspecified Referrals Cologuard Test Z12.11 - Encounter for screening for malignant neoplasm of colon, Z12.12 - Encounter for screening for malignant neoplasm of rectum OCCUPATIONAL THERAPY SPECIALIST Referral Z12.4 - Encounter for screening for malignant neoplasm of cervix
== END 2024-12-21 15:23 | disposition home or self-care (01) ==
PROVIDERS: PCP Internal Medicine; Visit Provider Internal Medicine
DX: Z00.00 Encounter for general adult medical examination without abnormal findings (principal); E78.00 Pure hypercholesterolemia, unspecified; Z12.11 Encounter for screening for malignant neoplasm of colon; K21.9 Gastro-esophageal reflux disease without esophagitis; Z12.4 Encounter for screening for malignant neoplasm of cervix